=== PATIENT | female | born 1980 | race Caucasian/White ===

== ENCOUNTER 2022-05-25 12:58 | Outpatient (REF) | payer OTHER, SELFPAY ==
--- NOTE | ~2022-05-25 | XR_ITS ---
EXAMINATION: XR FOOT, LEFT CLINICAL INFORMATION: Pain in the left foot COMPARISON: None TECHNIQUE: AP, lateral, and oblique views of the left foot. FINDINGS: There is a fracture at the base of the fifth metatarsal. This has the appearance of an avulsion fracture. No additional fractures are seen. Joint spaces are maintained. The soft tissues are unremarkable. XR/XR foot LT min 3V IMPRESSION: Fifth metatarsal base fracture.
== END 2022-05-25 12:59 | disposition home or self-care (01) ==
LOC: HO.HOSX 12:58
PROVIDERS: Visit Provider Physician Assistant
DX: S92.352A Displaced fracture of fifth metatarsal bone, left foot, initial encounter for closed fracture (principal)
CPT/HCPCS: 73630; 99202

== ENCOUNTER 2022-07-01 12:34 | Outpatient (REF) | payer OTHER, SELFPAY ==
--- NOTE | ~2022-07-01 | XR_ITS ---
EXAMINATION: XR FOOT, LEFT CLINICAL INFORMATION: Fracture COMPARISON: Previous x-ray May 2022 TECHNIQUE: AP, lateral, and oblique views of the left foot. FINDINGS: Healing nondisplaced fracture of the base of the fifth metatarsal bone. No other fracture. Joint spaces and soft tissues are normal. XR/XR foot LT min 3V IMPRESSION: Healing nondisplaced fracture of the base of the fifth metatarsal bone.
== END 2022-07-01 12:35 | disposition home or self-care (01) ==
LOC: HO.HOSX 12:34
PROVIDERS: Visit Provider Physician Assistant
DX: M79.672 Pain in left foot (principal)
CPT/HCPCS: 73630

== ENCOUNTER 2022-08-25 16:00 | Outpatient (RCR) | payer OTHER, SELFPAY ==
--- NOTE | 2022-07-14 19:29 | MHC.PT.EP ---
[facility] [place] Office [place] Office [place] Office [address]oya [address] [phone] F: [phone] F: [phone] F: [phone] F: [phone] Physical Therapy Plan of Care Date of Evaluation: Date of Surgery: Diagnosis: displaced fracture of fifth metatarsal bone L foot, Assessment: Pt is a 42 y/o female referred to PT for eval and treat of L 5th metatarsal closed fracture resulting in decreased tolerance and ability to perform ambulatory, and standing tasks for duration, performing fitness activities as well as negotiating stairs and uneven terrain, performing squatting activities and heavy HH chores secondary to decreased hip, core and knee strength, gait abnormality, decreased posture, and pain. Pt is deemed an appropriate candidate to receive skilled PT in order to address her physical limitations to improve her functional ability. Frequency and Duration: The patient will be seen 2 x/ wk x 6 wks. Short Term Goals: initiate HEP. Detention Goals: Improve L EV MMT by at least 1 /2 MMT grade; initial: 4-/5 and painful. Pt will be able to walk 1 mile with managed Sx; initial: unable or with extreme difficulty. Pt will be able to descend stairs with reciprocal fashion. I with HEP. Treatment Plan: Modalities to reduce pain, spasms and effusion. Manual therapy to restore motion and function. Therapeutic exercise to improve strength and flexibility. Neuromuscular re-education for posture and balance. Therapeutic activities to return to functional activities of daily living. Electronically signed by: maribell Montano PT. Please sign and return to therapist. Thank you for your referral.
--- NOTE | 2022-08-25 18:42 | MHC.PT.DC ---
[facility] [place] Office [place] Office [place] Office [address] Tanya Montoya 140 [facility] [phone] F: [phone] F: [phone] F: [phone] F: [phone] Physical Therapy Discharge Report Diagnosis: displaced fracture of fifth metatarsal bone L foot, Date of Surgery: Date of Evaluation: 07/14/22 Date of Discharge: 08/25/22 Treatments to Date: 12 Cancellations to Date: No Shows to Date: Discharge Status: Achieved Goals Improved Function Discharge Summary: Nazanin has been an active participant in her therapy in and out of the clinic and though persists with mild discomfort descending stairs she is in agreement with DC at this time as she is I with her home program, is improved of her condition, and has met her therapeutic goals. Electronically signed by: Gonzalo Montano PT. Please sign and return to therapist. Thank you for your referral.
== END 2022-08-25 18:42 | disposition home or self-care (01) ==
LOC: HO.PTCHIC 16:00
PROVIDERS: Visit Provider Physician Assistant
DX: S92.352A Displaced fracture of fifth metatarsal bone, left foot, initial encounter for closed fracture (principal)
CPT/HCPCS: 97110; 97112; 97140; 97161

== ENCOUNTER 2022-11-07 09:16 | Outpatient (REF) | payer OTHER, SELFPAY ==
[2022-11-07 10:50] LABS: MANUAL DIFF FLAG NO
[2022-11-07 10:56] LABS: Basophils Percent Auto 0.6 % (0-2); Eosinophils Absolute Auto 0.1 X10*3/uL (0.0-0.4); Eosinophils Percent Auto 1.8 % (0-4); Hematocrit 42.9 % (37.0-47.0); Hemoglobin 13.8 g/dl (12.0-16.0); Imm Gran Abs Auto 0.02 X10*3/uL (0.00-0.03); Imm Gran Pct Auto 0.3 % (0.0-0.4); Lymphocytes Absolute Auto 2.4 X10*3/uL (1.2-4.9); Lymphocytes Percent Auto 39.2 % (20-40); Mean Corpuscular HGB Conc 32.2 g/dl (31.0-35.0); Mean Corpuscular Hemoglobin 26.5 pg (27.0-33.0); Mean Corpuscular Volume 82.5 fL (80.0-98.0); Mean Platelet Volume 9.2 fL (9.4-12.3); Monocytes Absolute Auto 0.4 X10*3/uL (0.1-1.2); Monocytes Percent Auto 6.6 % (2-11); Neutrophils Absolute Auto 3.2 x10*3/uL (2.0-8.3); Neutrophils Percent Auto 51.5 % (45-73); Platelet Count 264 X10*3/uL (160-400); Red Cell Distribution Width 13.8 % (11.0-16.0); White Blood Count 6.2 X10*3/uL (4.8-10.8)
[2022-11-07 12:20] LABS: Alanine Aminotransferase 9 U/L (0-31); Albumin Level 4.2 g/dL (3.5-5.0); Alkaline Phosphatase 55 U/L (39-117); Anion Gap 14 (12-20); Aspartate Amino Transferase 12 U/L (5-31); Bilirubin Total 0.8 mg/dL (0.0-1.0); Blood Urea Nitrogen 14 mg/dL (9-16); Calcium 9.4 mg/dL (8.4-10.2); Carbon Dioxide 22 mmol/L (22-29); Chloride 109 mmol/L (96-108); Cholesterol 197 mg/dL; Estimated Glomerular Filt Rate > 60; Glucose Fasting 90 mg/dL (60-99); HDL Cholesterol 44 mg/dL; LDL Cholesterol Calculated 131 mg/dl; Potassium 4.3 mmol/L (3.3-5.1); Sodium 141 mmol/L (135-145); Total Protein 6.9 g/dL (6.5-8.0); Triglycerides 110 mg/dL
[2022-11-07 12:45] LABS: Vitamin D 25-OH Total 26.4 ng/mL (>30)
== END 2022-11-07 09:17 | disposition home or self-care (01) ==
LOC: HO.HMGCLDS 09:16
PROVIDERS: Visit Provider Internal Medicine
DX: Z00.00 Encounter for general adult medical examination without abnormal findings (principal)
CPT/HCPCS: 36415; 80053; 80061; 82306; 85025

== ENCOUNTER 2023-01-01 05:34 | Outpatient (REF) | payer OTHER, SELFPAY ==
--- NOTE | ~2023-01-01 | XR_ITS ---
EXAMINATION: XR FOOT, LEFT CLINICAL INFORMATION: Left foot pain COMPARISON: None available. TECHNIQUE: AP, lateral, and oblique views of the left foot. FINDINGS: There is no visible acute fracture, dislocation or subluxation. No bony erosive changes. The ankle mortise and subtalar joints are normal. XR/XR foot LT min 3V IMPRESSION: Unremarkable left foot exam
== END 2023-01-01 05:35 | disposition home or self-care (01) ==
LOC: HO.HOSX 05:34
PROVIDERS: Visit Provider Physician Assistant
DX: M79.672 Pain in left foot (principal)
CPT/HCPCS: 73630

== ENCOUNTER 2023-01-01 13:35 | Outpatient (REF) | payer OTHER, SELFPAY ==
[2023-01-06 05:19] LABS: HPV mRNA E6/E7 rflx Not Detected (Not Detected)
== END 2023-01-01 13:36 | disposition home or self-care (01) ==
LOC: HO.LNP 13:35
PROVIDERS: Visit Provider Advanced Practice Midwife
DX: Z01.419 Encounter for gynecological examination (general) (routine) without abnormal findings (principal)
CPT/HCPCS: 87624; 88142

== ENCOUNTER 2023-01-01 14:56 | Outpatient (REF) | payer OTHER, SELFPAY ==
--- NOTE | ~2023-01-01 | MM_ITS ---
EXAMINATION: MM SCREENING DIGITAL BREAST TOMOSYNTHESIS, BILATERAL CLINICAL INFORMATION: Screening. Asymptomatic. No prior breast imaging. Age 42. The lifetime risk of breast cancer based on the Tyrer-Cuzick Model is 19%. COMPARISON: None (current study represents initial baseline exam). TECHNIQUE: Digital breast tomosynthesis is performed in both the craniocaudal and mediolateral oblique views along with computer-aided detection (CAD). Synthesized 2D images are generated from the tomosynthesis. FINDINGS: There are scattered areas of fibroglandular density (ACR BI-RADS breast composition Category b). There are no significant masses, abnormal calcifications, or other abnormalities. Breast tissue composition borders on heterogeneously dense. No architectural abnormality. The axilla and skin contours are unremarkable. MM/MM tomosynthesis screening BI IMPRESSION: No mammographic evidence of malignancy. ASSESSMENT: BI-RADS 1: Negative RECOMMENDATION: Routine annual mammography screening. This patient's information was entered into a reminder system with a target due date for their next mammogram.
== END 2023-01-01 14:57 | disposition home or self-care (01) ==
LOC: HO.MAMMO 14:56
PROVIDERS: PCP Internal Medicine; Visit Provider Internal Medicine
DX: Z12.31 Encounter for screening mammogram for malignant neoplasm of breast (principal)
CPT/HCPCS: 77063; 77067

== ENCOUNTER 2023-01-06 15:40 | Outpatient (REF) | payer OTHER, SELFPAY ==
--- NOTE | ~2023-01-06 | US_ITS ---
EXAMINATION: US PELVIS CLINICAL INFORMATION: History of ovarian cyst COMPARISON: None available. TECHNIQUE: Ultrasound of the pelvis is performed using both transabdominal and transvaginal transducers along with Doppler. Transvaginal imaging is performed due to inadequate visualization transabdominally. FINDINGS: Uterus: The uterus is anteverted and measures 10.0 x 4.0 x 6.2 cm. The double wall endometrial thickness is 0.5 mm. Intrauterine device is centered within the endometrial canal. The uterus is smooth in contour and has normal myometrial echogenicity. No visible fibroid. Adnexa: Both ovaries are visualized. There is normal color flow to the adnexa. There is no ovarian torsion. There is no pelvic ascites or fluid collection. Right ovary measures 4.5 x 2.2 x 3.9 cm. Estimated volume of 20.4 mL. 2.4 x 1.7 x 2.3 cm intraovarian simple cyst. Left ovary measures 4.6 x 3.3 x 4.1 cm. Estimated volume of 32.2 mL. There is a intraovarian solid echogenic mass with posterior shadowing measuring 4.1 x 3.4 x 4.1 cm US/US pelvic and transvaginal IMPRESSION: 1. Left intraovarian solid echogenic mass with posterior shadowing measuring 4.1 cm. This may reflect a dermoid. Recommend further evaluation with pelvic MRI. 2. Right intraovarian simple cyst measures 2.4 cm. Recommend follow-up ultrasound in 6-12 weeks to assess for resolution. 3. Intrauterine device is centered within the endometrial canal.
== END 2023-01-06 15:41 | disposition home or self-care (01) ==
LOC: HO.HMGCX 15:40
PROVIDERS: PCP Internal Medicine; Visit Provider Advanced Practice Midwife
DX: Z87.42 Personal history of other diseases of the female genital tract (principal); Z97.5 Presence of (intrauterine) contraceptive device
CPT/HCPCS: 76830; 76856

== ENCOUNTER → 2023-01-25 15:01 | Outpatient (BNVA) | payer OTHER, SELFPAY | PROVIDERS: PCP Internal Medicine; Visit Provider Advanced Practice Midwife | DX: Z13.89 Encounter for screening for other disorder (principal) ==

== ENCOUNTER 2023-02-23 14:28 | Outpatient (REF) | payer OTHER, MEDICAID, SELFPAY ==
[2023-02-24 14:43] LABS: CT PCR NOT DETECTED (Not Detect.); NG PCR NOT DETECTED (Not Detect.)
== END 2023-02-23 14:29 | disposition home or self-care (01) ==
LOC: HO.LNP 14:28
PROVIDERS: PCP Internal Medicine; Visit Provider Obstetrics & Gynecology
DX: N83.292 Other ovarian cyst, left side (principal); Z20.2 Contact with and (suspected) exposure to infections with a predominantly sexual mode of transmission
CPT/HCPCS: 0353U; 81025

== ENCOUNTER 2023-03-30 08:03 | Outpatient (REF) | payer OTHER, MEDICAID, SELFPAY ==
--- NOTE | ~2023-03-30 | MR_ITS ---
EXAMINATION: MRI PELVIS WITH AND WITHOUT CONTRAST CLINICAL INFORMATION: Reason for Exam N83.299 - Other ovarian cyst, unspecified side COMPARISON: Pelvic ultrasound 01/06/2023 TECHNIQUE: Multiple routine MRI sequences through the pelvis were obtained on a high-field 1.5 Nu MRI before and after the uneventful administration of 8.5 mL of Gadavist gadolinium-based IV contrast. FINDINGS: UTERUS: The uterus is anteverted. The uterus measures 9.2 x 4.3 x 5.0 cm. Intrauterine device is in satisfactory position. The endometrial stripe measures 0.3 cm in thickness. Junctional zone is normal in signal and thickness. No focal uterine mass seen. CERVIX: Unremarkable. VAGINA: Unremarkable. RIGHT OVARY: The right ovary is unremarkable. LEFT OVARY: Left ovarian mass measuring 3.3 x 3.2 x 3.4 cm containing fat fluid level and calcification. No abnormal enhancement. KIDNEYS: Two normally positioned kidneys are seen. No hydronephrosis. BLADDER: Decompressed. PELVIC FREE FLUID: Small. LYMPH NODES: No bulky pelvic lymphadenopathy. MR/MR pelvis wo/w con IMPRESSION: Left ovarian dermoid cyst.
== END 2023-03-30 08:04 | disposition home or self-care (01) ==
LOC: HO.MRI 08:03
PROVIDERS: PCP Internal Medicine; Visit Provider Obstetrics & Gynecology
DX: N83.299 Other ovarian cyst, unspecified side (principal)
CPT/HCPCS: 72197; A9585

== ENCOUNTER 2023-04-13 14:10 | Outpatient (AMB) | payer OTHER, MEDICAID, SELFPAY ==
--- NOTE | 2023-04-13 14:12 | A.OFFVIS_ITS ---
Intake Vital Signs 04/13/23 14:26 Height 5 ft 7 in Weight 178 lb 9.191 oz BMI 28.0 BP 120/70 Intake Visit Reasons: MRI Follow up Child Support Specialist Required: No Information Interpreted: non-clinical & clinical Accompanied by: se Allergies No Known Allergies Allergy (Verified 04/13/23 14:27) HPI HPI Comments History of Present Illness Details Presenting for follow-up regarding pelvic MRI which showed a left 3.2 x 3.3 x 3.4 cm ovarian dermoid cyst. CA 125 ordered but was not done yet PFSH Medical History ADHD Surgical History Hx of dilation and curettage S/P foot surgery, right Family History Father Asthma Mental health disorder Mother Asthma High cholesterol Skin cancer Mental health disorder Maternal Grandmother Breast cancer Social History Household Members Other:: , 6 yr daughter, works in [employer], Housing: House Alcohol intake: current Alcohol intake frequency: holidays/special occasions only Patient Tobacco Use Status: Never used Tobacco e-Cigarette/Vaping Use: Never Used Current occupational status: employed Current occupation: [employer] Cognitive needs: No Hearing needs: No Vision needs: Yes Female Reproductive History Menstrual Age of Menarche: 13 Assessment & Plan Assessment & Plan (1) Dermoid cyst: Code(s): D36.9 - Benign neoplasm, unspecified site Plan: Discussed with the patient the finding on ultrasound and MRI suggests of teratoma. Explained to the patient that these tumors have a characteristic imaging appearance, which allows reasonably accurate noninvasive diagnosis in many cases with high reported specificity is 98 to 100 percent, but definitive diagnosis is made at the time of surgical excision. Malignant transformation occurs in 0.2 to 2 percent of mature cystic teratomas The treatment is laparoscopic ovarian cystectomy in order to make a definitive diagnosis, preserve ovarian tissue, and avoid potential problems such as torsion, rupture, or development of malignant components. For women who have completed childbearing, salpingo-oophorectomy is also acceptable treatment. Benign cystic teratomas do not recur if surgically resected. CA 125 ordered but not done, instructed the patient to have CA 125 tumor marker done, will refer patient to [facility] for further management. Coding Level of Care Code Est Pt Level 3 (28735) Diagnoses Dermoid cyst D36.9
[2023-04-13 14:26] VITALS: BP 120/70; BMI 28.0
== END 2023-04-13 16:03 | disposition home or self-care (01) ==
LOC: HO.HWS 14:10
PROVIDERS: PCP Internal Medicine; Visit Provider Obstetrics & Gynecology
DX: D36.9 Benign neoplasm, unspecified site (principal)
CPT/HCPCS: 99213

== ENCOUNTER → 2023-04-13 14:10 | Outpatient (BNVA) | payer OTHER, MEDICAID, SELFPAY | PROVIDERS: PCP Internal Medicine; Visit Provider Obstetrics & Gynecology ==

== ENCOUNTER 2023-08-13 09:07 | Outpatient (AMB) | payer OTHER, MEDICAID, SELFPAY ==
[2023-08-13 09:25] VITALS: BP 118/68; PULSE 79; TEMP 36.6; O2SAT 100; BMI 27.9
--- NOTE | 2023-08-13 09:25 | MHC.OFFWIV ---
Intake Vital Signs 08/13/23 09:25 Height 5 ft 7 in Weight 178 lb BMI 27.9 BP 118/68 Blood Pressure Location Rt brachial Position Sitting Pulse 79 Pulse Source Pulse Oximeter Temp 97.8 F Temp Source Temporal Artery Scan Pulse Oximetry (%) 100 Oxygen Delivery Method Room Air Intake Visit Reasons: EST/left arm pain(lobby) Intake Note: pt is here for c/o left shoulder pain Patient Tobacco Use Status: Never used Tobacco Allergies No Known Allergies Allergy (Verified 08/13/23 09:26) Do you need a note to return to daycare/school/sports/work: Yes HPI HPI Comments History of Present Illness Details This is a 43-year-old female who presents to the office today for sick visit. Patient complaining of left shoulder pain for the past several months, which has significantly worsened over the past several days. Patient states she has an excision of a lesion on her left arm approximately 2 months ago. She states her left shoulder was pretty much immobilized for several weeks after this procedure as she was afraid of pulling out her sutures. Since then, she has noticed significantly decreased range of motion and progressively worsening pain of the left shoulder. She states she started to notice pain going into the left side of her neck this morning. 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, works in billing, Housing: House Alcohol intake: current Alcohol intake frequency: holidays/special occasions only Patient Tobacco Use Status: Never used Tobacco e-Cigarette/Vaping Use: Never Used Current occupational status: employed Current occupation: [employer] Cognitive needs: No Hearing needs: No Vision needs: Yes Female Reproductive History Menstrual Age of Menarche: 13 Review of Systems Const All systems reviewed & are unremarkable except as noted in HPI and below Reports no additional complaints Eyes Reports no additional complaints ENT Reports no additional complaints Card Reports no additional complaints Resp Reports no additional complaints GI Reports no additional complaints Reports no additional complaints Musc Reports no additional complaints Skin/Breast Reports system reviewed and no additional complaints, except as documented Neuro Reports no additional complaints Psych Reports no additional complaints Endo Reports no additional complaints Albaro/Lymph Reports no additional complaints Aller/Immun Reports no additional complaints Physical Exam Vital Signs: Last Vital Signs Temp 97.8 F 08/13/23 09:25 Pulse 79 08/13/23 09:25 BP 118/68 08/13/23 09:25 Pulse Ox 100 08/13/23 09:25 Oxygen Delivery Method Room Air 08/13/23 09:25 BMI result Body Mass Index 27.9 Const Other: Vital signs reviewed. Constitutional: Non-toxic appearing. No acute distress. Well-developed and well-nourished. HEENT: Normocephalic and atraumatic. Tympanic membranes without erythema, edema, or bulging bilaterally. External auditory canals without erythema or edema bilaterally. Moist mucous membranes. No pharyngeal erythema or exudates. Skin: Warm and dry. No rashes or lesions noted. Neck: Full and painless range of motion. No cervical lymphadenopathy. Cardio: Regular rate and rhythm. No murmurs, gallops, or rubs. No lower extremity edema. No JVD. Pulmonary: No respiratory distress. No accessory muscle usage. Clear to auscultation bilaterally without wheezing, crackles, or rhonchi. Gastrointestinal: Soft, nontender, and nondistended in all 4 quadrants. Normoactive bowel sounds in all 4 quadrants. Genitourinary: No CVA tenderness. Musculoskeletal: Significantly decreased range of motion of the left shoulder in all planes but especially in shoulder abduction, flexion, and internal/external rotation Neuro: Alert and oriented x4. Cranial nerves 2-12 grossly intact. No focal deficits appreciated. Psych: Normal mood and affect. Assessment & Plan Assessment & Plan (1) Adhesive capsulitis of left shoulder: Code(s): M75.02 - Adhesive capsulitis of left shoulder Plan: This is a 43-year-old female presenting to the office complaining of decreased range of motion and pain of the left shoulder following a period of immobilization. On physical examination, patient has significantly decreased range of motion of the left shoulder in all planes as well as diffuse tenderness to palpation of the left shoulder. History and physical most consistent with an adhesive capsulitis of the left shoulder possibly secondary to immobilization. Patient was given a ambulatory referral for physical therapy. Recommended p.o. ibuprofen 800 mg 3 times daily with food. Recommended gentle tyaud-am-mvetyv exercises (as long as they are not painful) until she can follow up with physical therapy. Recommend rest/activity modification, heat to the area, and continue with acetaminophen/ibuprofen for pain management as long as patient has no medical contraindications. Patient was advised to follow-up here or proceed to the emergency room if she were to develop persistent or worsening symptoms. Patient verbalizes her understanding and she is in agreement with the plan. Orders: Orders AMB Acetaminophen Adult Dose Today M25.512 - Pain in left shoulder PT Evaluation and Treatment Today M75.02 - Adhesive capsulitis of left shoulder Medications: New acetaminophen 975 mg (3 x 325 mg) PO ONCE 3 tabs 0RF M25.512 - Pain in left shoulder Coding Level of Care Code Est Pt Level 3 (62013) Diagnoses Adhesive capsulitis of left shoulder M75.02
== END 2023-08-13 10:06 | disposition home or self-care (01) ==
PROVIDERS: PCP Internal Medicine; Visit Provider Physician Assistant Medical
DX: M75.02 Adhesive capsulitis of left shoulder (principal)
CPT/HCPCS: 99213

== ENCOUNTER 2023-10-19 16:00 | Outpatient (RCR) | payer OTHER, MEDICAID, SELFPAY ==
--- NOTE | 2023-09-03 07:46 | MHC.PT.EP ---
[facility] [place] Office [place] Office [place] Office [address] Tanya Montoya [address] [phone] F: [phone] F: [phone] F: [phone] F: [phone] Physical Therapy Plan of Care Date of Evaluation: 09/03/23 Date of Surgery: n/a Diagnosis: adhesive capsulitis of L shoulder Assessment: Patient is a 43 year old female presenting to PT with complaints of pain in her L shoulder. Pt reports onset of pain began June 2023 due to not moving her arm after having an excision to her L upper arm. She presents today with impairments in pain, ROM, shoulder strength, posture. 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 Pt expresses intermediate manager goal of returning to PLOF, and is motivated to work towards this in PT. Clinical presentation today is most consistent with signs and sx associated with possible L adhesive capsulitis and pt will benefit from skilled PT 2 week x 4 weeks to address the following problems and impairments noted upon evaluation: pain, ROM, shoulder strength, posture. These problems limit the patient with the following functional activities: reaching, lifting, ADLs, dressing. The prescribed treatment plan of care is medically necessary. Co-morbidities of ADHD were identified and taken into considerations of plan of care. Pt was educated on HEP, role of PT, prognosis, POC. Frequency and Duration: The patient will be seen 2 x week x 4 weeks Short Term Goals: Pt will demonstrate improved AROM by 30 degrees in all directions in 2 weeks. Pt will demonstrate improved MMT strength by 1/3 grade in 2 weeks. Pt will demonstrate improved postural awareness by sitting with biomechanically correct posture without cues throughout session to improve overall postural function in 2 weeks. Manager Helpdesk Goals: Pt will demonstrate improved SPADI score by 13 points in 4 weeks for improved functional mobility. Pt will demonstrate improved shoulder AROM to equal B in 4 weeks for improved ability to reach and dress herself. Pt will demonstrate at least 4+/5 MMT strength in 4 weeks for return to PLOF with lifting and household duties. Treatment Plan: Modalities to reduce pain, spasms and effusion. Manual therapy to restore motion and function. Therapeutic exercise to improve strength and flexibility. Neuromuscular re-education for posture and balance. Therapeutic activities to return to functional activities of daily living. Electronically signed by: Yesenia Lynn PT, DPT, ATC Please sign and return to therapist. Thank you for your referral.
--- NOTE | 2023-11-19 07:55 | MHC.PT.DC ---
[facility] [place] Office [place] Office [place] Office [address] Cec[address] Montoya [address] [phone] F: [phone] F: [phone] F: [phone] F: [phone] Physical Therapy Discharge Report Diagnosis: adhesive capsulitis of L shoulder Date of Surgery: n/a Date of Evaluation: 09/03/23 Date of Discharge: 11/19/23 Treatments to Date: 8 Cancellations to Date: 1 No Shows to Date: 0 Discharge Status: Discharge Summary: Pt has not returned to skilled PT in >30 days and therefore to be d/c per policy. Electronically signed by: Yesenia Lynn, PT, DPT, ATC Please sign and return to therapist. Thank you for your referral.
== END 2023-11-19 07:55 | disposition home or self-care (01) ==
LOC: HO.PTCHIC 16:00
PROVIDERS: PCP Internal Medicine; Visit Provider Physician Assistant Medical
DX: M75.02 Adhesive capsulitis of left shoulder (principal)
CPT/HCPCS: 97110; 97140; 97161

== ENCOUNTER 2023-10-22 15:36 | Outpatient (REF) | payer OTHER, MEDICAID, SELFPAY ==
--- NOTE | ~2023-10-22 | US_ITS ---
Ultrasound pelvic liver Doppler: INDICATION: Adnexal mass COMPARISON: 01/06/2023 TECHNIQUE: Color-flow and duplex Doppler ultrasound evaluation of the bilateral ovaries/adnexa US/US pelvic ovarian doppler Findings/impression: Normal color flow with normal arterial and venous waveforms in the bilateral ovaries.
--- NOTE | ~2023-10-22 | US_ITS ---
EXAMINATION: US PELVIS CLINICAL INFORMATION: Adnexal mass, benign neoplasm, check Dopplers for lesion, IUD, irregular unsure. COMPARISON: MR pelvis 03/30/2023. Ultrasound pelvis 01/06/2023. TECHNIQUE: Ultrasound of the pelvis is performed using both transabdominal and transvaginal transducers along with Doppler. Transvaginal imaging is performed due to inadequate visualization transabdominally. FINDINGS: The uterus measures 9.7 x 4.[address] within the endometrial cavity. Endometrial thickness of 0.3-0.5 cm, although evaluation limited due to shadowing from IUD. No significant free fluid. Right ovary measures 4.3 x 3.1 x 2.1 cm, volume 14.5 mL. Right ovarian 2.0 x 1.8 x 2.0 cm simple cyst is likely physiologic. Left ovary measures 5.5 x 3.4 x 5.3 cm, volume 52.2 mL and was best visualized on transabdominal ultrasound images. Left ovarian 4.1 x 3.3 x 3.9 cm mass with fluid level, echogenic component and posterior shadowing measured 4.1 x 3.4 x 4.1 cm on ultrasound of 01/12/2023 and 3.3 x 3.2 x 3.4 cm on MR of 04/01/2023 at which time it was felt to have characteristics of a dermoid cyst. US/US pelvic and transvaginal IMPRESSION: 1. Left ovarian 4.1 x 3.3 x 3.9 cm mass measured 4.1 x 3.4 x 4.1 cm on ultrasound of 01/12/2023 and 3.3 x 3.2 x 3.4 cm on MRI of 04/01/2023 at which time it was felt to have characteristics of a dermoid cyst. 2. Right ovarian 2.0 cm simple cyst is likely physiologic. 3. IUD in place within the endometrial cavity. 4. Endometrial thickness is 0.3-0.5 cm, although evaluation limited due to shadowing from IUD.
== END 2023-10-22 15:37 | disposition home or self-care (01) ==
LOC: HO.HMGCX 15:36
PROVIDERS: PCP Internal Medicine; Visit Provider Obstetrics & Gynecology
DX: Z30.431 Encounter for routine checking of intrauterine contraceptive device (principal); R19.09 Other intra-abdominal and pelvic swelling, mass and lump; N83.291 Other ovarian cyst, right side; D48.9 Neoplasm of uncertain behavior, unspecified; D36.9 Benign neoplasm, unspecified site
CPT/HCPCS: 76830; 76856; 93975

== ENCOUNTER 2024-04-05 12:06 | Outpatient (AMB) | payer OTHER, SELFPAY ==
--- NOTE | 2024-04-05 12:31 | MHC.OFFWIV ---
Intake Vital Signs 04/05/24 12:32 04/05/24 13:07 Height 5 ft 7 in Weight 166 lb BMI 26.0 BP 108/70 Blood Pressure Location Lt brachial Position Sitting Pulse 123 H 90 Pulse Source Pulse Oximeter Pulse Oximeter Temp 99.1 F Temp Source Oral Pulse Oximetry (%) 98 Oxygen Delivery Method Room Air Intake Visit Reasons: EP sinus congestion/pain sore throat Intake Note: pt is here c/o sore throat and sinus congestion/pain, Body aches, fevers. Started last Wednesday Patient Tobacco Use Status: Never used Tobacco Allergies No Known Allergies Allergy (Verified 04/05/24 12:32) Do you need a note to return to daycare/school/sports/work: Yes HPI HPI Comments History of Present Illness Details Patient is 43-year-old female complaining of a sore throat x5 days. She states she also had associated sinus congestion and pain, some ear popping and a productive cough. She denies any shortness of breath, fevers, nausea, vomiting or diarrhea. She states she does not have any sick contacts. [facility] Medical History ADHD Surgical History Hx of dilation and curettage S/P foot surgery, right Family History Father Asthma Mental health disorder Mother Asthma High cholesterol Skin cancer Mental health disorder Maternal Grandmother Breast cancer Social History Household Members Other:: , 6 yr daughter, works in billing, Housing: House Alcohol intake: current Alcohol intake frequency: holidays/special occasions only Patient Tobacco Use Status: Never used Tobacco e-Cigarette/Vaping Use: Never Used Current occupational status: employed Current occupation: [employer] Cognitive needs: No Hearing needs: No Vision needs: Yes Female Reproductive History Menstrual Age of Menarche: 13 Review of Systems Const All systems reviewed & are unremarkable except as noted in HPI and below Physical Exam Vital Signs: Last Vital Signs Temp 99.1 F 04/05/24 12:32 Pulse 123 H 04/05/24 12:32 BP 108/70 04/05/24 12:32 Pulse Ox 98 04/05/24 12:32 Oxygen Delivery Method Room Air 04/05/24 12:32 BMI result Body Mass Index 26.0 Const General: cooperative, healthy appearing, comfortable and no acute distress Orientation/consciousness: patient oriented x3 Limitations: no limitations HEENT Head: Yes normal to inspection Ears: hearing grossly normal bilaterally, external ears normal and TM's normal bilaterally General nose exam: Normal external nose present, Normal nares present and No nasal discharge present Face and sinus: Yes normal facial exam and Yes sinuses nontender Mouth: Normal oral and palatal mucosa present and moist mucous membranes Throat: Yes tonsils normal, Yes uvula midline and Yes posterior oropharynx abnormal (Erythema) Eyes General: appearance normal, both eyes and all related structures Neck Neck: Yes normal visual inspection Resp Effort & Inspection: normal respiratory effort, able to speak in complete sentences and Actively coughing Skin General skin exam: no rashes or lesions noted Neuro General: patient oriented x3 Extrem General: Yes normal to inspection and Yes no clubbing, cyanosis or edema Results AMB Rapid Strep AMB Rapid Strep Positive Last Edit by Jay Hughes CMA on 04/05/24 12:50 Results Reviewed Results Reviewed: Laboratory Last Values Strep Scn [facility] Positive 04/05/24 12:48 Assessment & Plan Assessment & Plan (1) Strep pharyngitis: Code(s): J02.0 - Streptococcal pharyngitis Plan: Okay to work note for 2 days, sent prescription for amoxicillin to pharmacy as rapid strep was positive Plan See above Orders: Orders AMB Rapid Strep Screen Today Z13.9 - Encounter for screening, unspecified Medications: New amoxicillin 500 mg PO Q12H 20 caps 0RF Coding Level of Care Code Est Pt Level 3 (08294) Diagnoses Strep pharyngitis J02.0
[2024-04-05 12:32] VITALS: BP 108/70; PULSE 123; TEMP 37.3; O2SAT 98; BMI 26.0
[2024-04-05 13:07] VITALS: PULSE 90
== END 2024-04-05 13:10 | disposition home or self-care (01) ==
PROVIDERS: PCP Internal Medicine; Visit Provider Physician Assistant
DX: J02.0 Streptococcal pharyngitis (principal); J02.9 Acute pharyngitis, unspecified
CPT/HCPCS: 87880; 99213